=== PATIENT | male | born 1985 | race Caucasian/White ===

== ENCOUNTER 2022-08-25 15:35 | Inpatient (IN) | payer BC, OTHER ==
[~2022-08-25] VITALS: Ht 172.7 cm; Wt 82.0 kg
[~2022-08-25 15:35] MED LIST: NO HOME MEDS
[2022-08-25] MEDS ORDERED: ondansetron/PF 4mg/2ml inj IV ONE (17:45)
[2022-08-25] MEDS ORDERED: ondansetron 4mg rapidly disintigrating tab PO ONE (17:45)
[2022-08-25] MEDS ORDERED: normal saline 1000ml 1,000 ML IV ONE (17:45)
[2022-08-25 18:01] LABS: BASOPHILS % (AUTO) 0.1 % (0-1); EOSINOPHILS % (AUTO) 0.1 % (0-6); HEMOGLOBIN 12.4 g/dl (14.0-17.9); LYMPHOCYTES # (AUTO) 0.8 X10'3 (1.1-4.8); LYMPHOCYTES % (AUTO) 4.2 % (21-51); MEAN CORPUSCULAR HEMOGLOBIN 28.3 PG (27.0-31.0); MEAN CORPUSCULAR HGB CONC 33.5 g/dL (33.0-36.5); MEAN CORPUSCULAR VOLUME 84.6 FL (78-98); MEAN PLATELET VOLUME 6.9 FL (7.4-10.4); MONOCYTES % (AUTO) 5.6 % (2-12); NEUTROPHILS # (AUTO) 16.4 X10'3 (1.8-7.7); PLATELET COUNT 320 X10'3 (140-440); RED BLOOD COUNT 4.37 X10'6 (4.70-6.10); RED CELL DISTRIBUTION WIDTH 13.7 % (11.5-14.5); WHITE BLOOD COUNT 18.2 X10'3 (4.5-11.0)
[2022-08-25] MEDS ORDERED: CefTRIAXone/D5W-Rocephin 1gm 50 ML IV ONE (18:15)
[2022-08-25] MEDS ORDERED: azithromycin/NS 500mg/250ml 250 ML IV ONE (18:15)
[2022-08-25 18:18] LABS: ALANINE AMINOTRANSFERASE 32 U/L (12-78); ALBUMIN 2.8 G/DL (3.4-5.0); ALBUMIN/GLOBULIN RATIO 0.6 (1.1-1.5); ALKALINE PHOSPHATASE 103 IU/L (46-116); ANION GAP 11 (8-16); ASPARTATE AMINO TRANSFERASE 28 U/L (10-37); BILIRUBIN,TOTAL 0.6 MG/DL (0.1-1.0); BLOOD UREA NITROGEN 41 MG/DL (7-18); BUN/CREATININE RATIO 22.4 (10.0-20.0); CALCIUM 8.8 MG/DL (8.5-10.1); CHLORIDE 94 MMOL/L (99-107); CREATININE 1.83 MG/DL (0.60-1.10); GLUCOSE 91 MG/DL (70-104); LIPASE < 50 U/L (73-393); MAGNESIUM 1.9 MG/DL (1.5-2.4); POTASSIUM 3.7 MMOL/L (3.5-5.1); SODIUM 130 MMOL/L (135-145); TOTAL PROTEIN 7.5 G/DL (6.4-8.2); eGFR 42 ML/MIN
[2022-08-25] MEDS ORDERED: normal saline 1000ML IV soln IVB ONE ×2 (19:20→20:45)
[2022-08-25 19:32] LABS: D-DIMER 1.48 MG/L FEU (0-0.50)
[2022-08-25] MEDS ORDERED: iohexol 350MG/ML 100ml bottle IV ONE (19:56)
[2022-08-25] MEDS ORDERED: acetaminophen 325mg tablet PO ONE (20:45)
[2022-08-25] MEDS ORDERED: temazepam 15mg capsule PO PRN (21:00)
[2022-08-25] MEDS ORDERED: potassium Cl 40MEQ/1/2NS 520ml 520 ML IV PRN ×2 (21:20→22:45)
[2022-08-25] MEDS ORDERED: ipratropium/albuterol 3ml nebule NEB PRN ×2 (21:20)
[2022-08-25] MEDS ORDERED: potassium Cl 20 mEq SR tablet PO PRN ×4 (21:20→22:45)
[2022-08-25] MEDS ORDERED: magnesium 4gm in 100ml NS 100 ML IV PRN ×2 (21:20→22:45)
[2022-08-25] MEDS ORDERED: normal saline 1000ml 1,000 ML IV SCH (21:20)
[2022-08-25] MEDS ORDERED: magnesium Cl slow-release 64mg tablet PO PRN ×2 (21:20→22:45)
[2022-08-25] MEDS ORDERED: ondansetron/PF 4mg/2ml inj IV PRN (21:20)
[2022-08-25 21:37] LABS: POTASSIUM 3.9 MMOL/L (3.5-5.1)
[2022-08-25] MEDS ORDERED: acetaminophen 325mg tablet PO PRN (22:45)
[2022-08-25] MEDS ORDERED: magnesium hydroxide 30ml (MOM) UD suspension PO PRN (22:45)
[2022-08-25] MEDS ORDERED: mag hydrox/Alum hydrox/simeth 30ml oral suspension PO PRN (22:45)
[2022-08-25] MEDS ORDERED: levoFLOXACIN-Levaquin 750MG/D5 150 ML IV STA (22:45)
[2022-08-25] MEDS: normal saline 1000ml 1,000 ML IV SCH (23:10)
[2022-08-26] VITALS (17 sets, daily range): BP systolic 89–122; BP diastolic 50–76
[2022-08-26] MEDS: heparin, porcine 5000 units/ml vial SQ SCH ×3 (01:04→16:02)
[2022-08-26] MEDS: NORepinephrine 8mg/ 250ml NS 250 ML IV SCH ×2 (01:19→15:09)
[2022-08-26 03:38] LABS: BASOPHILS % (AUTO) 0.1 % (0-1); EOSINOPHILS % (AUTO) 0.1 % (0-6); HEMATOCRIT 31.4 % (42.0-52.0); HEMOGLOBIN 10.6 g/dl (14.0-17.9); LYMPHOCYTES % (AUTO) 4.5 % (21-51); MEAN CORPUSCULAR HEMOGLOBIN 28.3 PG (27.0-31.0); MEAN CORPUSCULAR HGB CONC 33.7 g/dL (33.0-36.5); MEAN CORPUSCULAR VOLUME 83.9 FL (78-98); MEAN PLATELET VOLUME 7.7 FL (7.4-10.4); MONOCYTES # (AUTO) 0.6 X10'3 (0-0.9); MONOCYTES % (AUTO) 2.6 % (2-12); NEUTROPHILS # (AUTO) 21.3 X10'3 (1.8-7.7); NEUTROPHILS % (AUTO) 92.7 % (42-75); PLATELET COUNT 317 X10'3 (140-440); RED BLOOD COUNT 3.74 X10'6 (4.70-6.10); RED CELL DISTRIBUTION WIDTH 13.6 % (11.5-14.5)
[2022-08-26 03:55] LABS: ALBUMIN 2.1 G/DL (3.4-5.0); ANION GAP 10 (8-16); BLOOD UREA NITROGEN 32 MG/DL (7-18); BUN/CREATININE RATIO 27.1 (10.0-20.0); CALCIUM 7.6 MG/DL (8.5-10.1); CHLORIDE 102 MMOL/L (99-107); CREATININE 1.18 MG/DL (0.60-1.10); GLUCOSE 119 MG/DL (70-104); MAGNESIUM 1.7 MG/DL (1.5-2.4); POTASSIUM 4.2 MMOL/L (3.5-5.1); SODIUM 136 MMOL/L (135-145); TOTAL CARBON DIOXIDE 23.9 MMOL/L (24-32); eGFR 69 ML/MIN
[2022-08-26 07:07] LABS: URINE AMPHETAMINE SCREEN POSITIVE (Neg); URINE BARBITUATE SCREEN NEGATIVE (Neg); URINE BENZODIAZEPINES SCREEN NEGATIVE (Neg); URINE CANNABINOID SCREEN NEGATIVE (Neg); URINE COCAINE SCREEN NEGATIVE (Neg); URINE METHADONE SCREEN NEGATIVE (Neg); URINE OPIATE SCREEN NEGATIVE (Neg); URINE PHENCYCLIDINE SCREEN NEGATIVE (Neg)
[2022-08-26] MEDS: azithromycin/NS 500mg/250ml 250 ML IV SCH (07:49)
[2022-08-26] MEDS: acetaminophen 325mg tablet PO PRN (07:50)
[2022-08-26] MEDS: K and/or MAG REPLACEMENT MC SCH ×2 (08:00→20:00)
[2022-08-26] MEDS ORDERED: K and/or MAG REPLACEMENT MC SCH (08:00)
[2022-08-26] MEDS ORDERED: docusate sod 100mg capsule PO SCH (08:00)
[2022-08-26] MEDS ORDERED: heparin, porcine 5000 units/ml vial SQ SCH (08:00)
[2022-08-26] MEDS ORDERED: CefTRIAXone/D5W-Rocephin 1gm 50 ML IV SCH ×2 (08:00)
[2022-08-26] MEDS: normal saline 1000ml 1,000 ML IV SCH ×3 (08:45→23:00)
[2022-08-26 09:08] LABS: CLARITY,URINE CLEAR (Clear); COLOR,URINE YELLOW (Yellow); GLUCOSE, URINE NEGATIVE (Neg); KETONES,URINE NEGATIVE (Neg); LEUKOCYTE ESTERASE ,URINE NEGATIVE (Neg); NITRITES, URINE NEGATIVE (Neg); OCCULT BLOOD,URINE TRACE-INTACT (Neg); PH,URINE 5.5 (4.8-8.0); PROTEIN,URINE NEGATIVE (Neg)
[2022-08-26 09:13] LABS: UA COLLECTION TYPE NON-SPECIFIED
[2022-08-26 09:15] LABS: BACTERIA,URINE FEW /HPF (Neg); MUCUS STRANDS NONE SEEN /LPF (Neg); RBC,URINE NONE SEEN /HPF (0-2); SQUAMOUS EPITHELIAL CELL,UR FEW /LPF (FEW); WBC,URINE 0-4 /HPF (0-4)
[2022-08-26] MEDS ORDERED: traMADol 50MG tablet PO PRN (10:25)
[2022-08-26] MEDS: nicotine 21mg patch - 24 hr TD SCH (11:43)
[2022-08-26] MEDS: traMADol 50MG tablet PO PRN (14:21)
[2022-08-26] MEDS: piperacillin/tazo 3.375gm/50ml 50 ML IV SCH (16:35)
[2022-08-26] MEDS ORDERED: VANCOmycin 2,000MG in NS 500ml IV soln IV ONE (17:00)
[2022-08-26] MEDS ORDERED: vancomycin/NS 1 GM ADD-VANTAGE 250 ML IV SCH (17:00)
[2022-08-26 18:12] LABS: BASOPHILS % (AUTO) 0.1 % (0-1); EOSINOPHILS # (AUTO) 0.1 X10'3 (0-0.9); EOSINOPHILS % (AUTO) 0.7 % (0-6); HEMATOCRIT 30.3 % (42.0-52.0); LYMPHOCYTES # (AUTO) 1.5 X10'3 (1.1-4.8); LYMPHOCYTES % (AUTO) 7.1 % (21-51); MEAN CORPUSCULAR HEMOGLOBIN 27.7 PG (27.0-31.0); MEAN CORPUSCULAR HGB CONC 33.2 g/dL (33.0-36.5); MEAN CORPUSCULAR VOLUME 83.5 FL (78-98); MEAN PLATELET VOLUME 7.2 FL (7.4-10.4); MONOCYTES # (AUTO) 1.3 X10'3 (0-0.9); MONOCYTES % (AUTO) 5.9 % (2-12); NEUTROPHILS # (AUTO) 18.3 X10'3 (1.8-7.7); NEUTROPHILS % (AUTO) 86.2 % (42-75); PLATELET COUNT 323 X10'3 (140-440); RED BLOOD COUNT 3.63 X10'6 (4.70-6.10); RED CELL DISTRIBUTION WIDTH 13.7 % (11.5-14.5); WHITE BLOOD COUNT 21.2 X10'3 (4.5-11.0)
[2022-08-26] MEDS: albuterol 2.5 MG/3 ML nebule NEB SCH (20:32)
[2022-08-26] MEDS ORDERED: levoFLOXACIN-Levaquin 750MG/D5 150 ML IV SCH (23:00)
[2022-08-27] MEDS: piperacillin/tazo 3.375gm/50ml 50 ML IV SCH ×3 (00:47→15:51)
[2022-08-27] MEDS: heparin, porcine 5000 units/ml vial SQ SCH ×4 (01:01→23:42)
[2022-08-27] MEDS: albuterol 2.5 MG/3 ML nebule NEB SCH ×4 (03:12→20:19)
[2022-08-27] MEDS: normal saline 1000ml 1,000 ML IV SCH ×2 (04:45→15:50)
[2022-08-27] MEDS ORDERED: vancomycin/NS 1 GM ADD-VANTAGE 250 ML IV SCH (05:00)
[2022-08-27 06:04] LABS: BASOPHILS % (AUTO) 0.2 % (0-1); EOSINOPHILS # (AUTO) 0.3 X10'3 (0-0.9); EOSINOPHILS % (AUTO) 1.5 % (0-6); HEMATOCRIT 28.1 % (42.0-52.0); HEMOGLOBIN 9.4 g/dl (14.0-17.9); LYMPHOCYTES % (AUTO) 10.1 % (21-51); MEAN CORPUSCULAR HEMOGLOBIN 28.2 PG (27.0-31.0); MEAN CORPUSCULAR HGB CONC 33.5 g/dL (33.0-36.5); MEAN CORPUSCULAR VOLUME 84.1 FL (78-98); MONOCYTES # (AUTO) 1.2 X10'3 (0-0.9); NEUTROPHILS # (AUTO) 16.5 X10'3 (1.8-7.7); NEUTROPHILS % (AUTO) 82.2 % (42-75); PLATELET COUNT 325 X10'3 (140-440); RED BLOOD COUNT 3.34 X10'6 (4.70-6.10); RED CELL DISTRIBUTION WIDTH 14.2 % (11.5-14.5); WHITE BLOOD COUNT 20.1 X10'3 (4.5-11.0)
[2022-08-27 06:17] LABS: ALBUMIN 1.7 G/DL (3.4-5.0); ANION GAP 5 (8-16); BLOOD UREA NITROGEN 13 MG/DL (7-18); BUN/CREATININE RATIO 15.9 (10.0-20.0); CALCIUM 7.9 MG/DL (8.5-10.1); CHLORIDE 106 MMOL/L (99-107); CREATININE 0.82 MG/DL (0.60-1.10); GLUCOSE 106 MG/DL (70-104); MAGNESIUM 2.2 MG/DL (1.5-2.4); POTASSIUM 3.5 MMOL/L (3.5-5.1); SODIUM 140 MMOL/L (135-145); TOTAL CARBON DIOXIDE 29.1 MMOL/L (24-32); eGFR > 90 ML/MIN
[2022-08-27 07:00] VITALS: BP 95/58
[2022-08-27] MEDS: nicotine 21mg patch - 24 hr TD SCH (07:33)
[2022-08-27] MEDS: azithromycin/NS 500mg/250ml 250 ML IV SCH (07:33)
[2022-08-27] MEDS: K and/or MAG REPLACEMENT MC SCH ×2 (08:00→20:00)
[2022-08-27] MEDS: vancomycin/NS 1 GM ADD-VANTAGE 250 ML IV SCH ×3 (08:22→23:24)
[2022-08-27 11:00] VITALS: BP 115/55
[2022-08-27 15:00] VITALS: BP 102/55
[2022-08-27 18:00] VITALS: BP 121/77
[2022-08-27] MEDS: traMADol 50MG tablet PO PRN (20:53)
[2022-08-27 22:00] VITALS: BP 115/68
[2022-08-27] MEDS: acetaminophen 325mg tablet PO PRN (23:45)
[2022-08-28] MEDS: normal saline 1000ml 1,000 ML IV SCH (00:45)
[2022-08-28] MEDS: piperacillin/tazo 3.375gm/50ml 50 ML IV SCH ×2 (00:47→08:00)
[2022-08-28 02:00] VITALS: BP 118/61
[2022-08-28] MEDS: albuterol 2.5 MG/3 ML nebule NEB SCH ×2 (02:47→08:46)
[2022-08-28] MEDS ORDERED: VANCOMYCIN LEVEL IV ONE (06:30)
[2022-08-28 07:35] LABS: BASOPHILS # (AUTO) 0.1 X10'3 (0-0.2); BASOPHILS % (AUTO) 0.4 % (0-1); EOSINOPHILS # (AUTO) 0.4 X10'3 (0-0.9); EOSINOPHILS % (AUTO) 3.3 % (0-6); HEMOGLOBIN 9.5 g/dl (14.0-17.9); LYMPHOCYTES # (AUTO) 1.9 X10'3 (1.1-4.8); LYMPHOCYTES % (AUTO) 15.3 % (21-51); MEAN CORPUSCULAR HEMOGLOBIN 28.6 PG (27.0-31.0); MEAN CORPUSCULAR HGB CONC 33.9 g/dL (33.0-36.5); MEAN CORPUSCULAR VOLUME 84.5 FL (78-98); MEAN PLATELET VOLUME 6.8 FL (7.4-10.4); MONOCYTES # (AUTO) 1.4 X10'3 (0-0.9); MONOCYTES % (AUTO) 10.8 % (2-12); NEUTROPHILS # (AUTO) 8.9 X10'3 (1.8-7.7); NEUTROPHILS % (AUTO) 70.2 % (42-75); PLATELET COUNT 346 X10'3 (140-440); RED BLOOD COUNT 3.31 X10'6 (4.70-6.10); RED CELL DISTRIBUTION WIDTH 14.5 % (11.5-14.5); WHITE BLOOD COUNT 12.7 X10'3 (4.5-11.0)
[2022-08-28 08:00] LABS: ALBUMIN 1.8 G/DL (3.4-5.0); ANION GAP 5 (8-16); BLOOD UREA NITROGEN 11 MG/DL (7-18); BUN/CREATININE RATIO 14.7 (10.0-20.0); CALCIUM 8.2 MG/DL (8.5-10.1); CHLORIDE 107 MMOL/L (99-107); CREATININE 0.75 MG/DL (0.60-1.10); GLUCOSE 82 MG/DL (70-104); POTASSIUM 3.4 MMOL/L (3.5-5.1); SODIUM 141 MMOL/L (135-145); TOTAL CARBON DIOXIDE 29.1 MMOL/L (24-32); eGFR > 90 ML/MIN
[2022-08-28] MEDS: azithromycin/NS 500mg/250ml 250 ML IV SCH (08:00)
[2022-08-28] MEDS: heparin, porcine 5000 units/ml vial SQ SCH (08:00)
[2022-08-28] MEDS: nicotine 21mg patch - 24 hr TD SCH (08:00)
[2022-08-28] MEDS: K and/or MAG REPLACEMENT MC SCH (08:00)
[2022-08-28] MEDS: acetaminophen 325mg tablet PO PRN (09:39)
[2022-08-28] MEDS ORDERED: LEVO-65 PO (09:56)
[2022-08-28] MEDS ORDERED: VANCOmycin 1250MG/NS 250ml Bag 250 ML IV SCH (15:00)
[2022-08-29] MEDS ORDERED: VANCOMYCIN LEVEL IV ONE (14:30)
== END 2022-08-28 11:54 | disposition home or self-care (01) | DRG 871 ==
LOC: ER 15:36 → ED HOLD 21:30 → EDBEDREQ 23:51 → EDBEDREQSVC 23:51 → CICU 2S 08-26 00:50 → PCU 3S 08-26 16:54
PROVIDERS: ADMIT Internal Medicine; ATTEND Internal Medicine
PROC: 5A0935A Assistance with Respiratory Ventilation, Less than 24 Consecutive Hours, High Flow/Velocity Cannula (ICD-10-PCS; principal; 2022-08-26)
PROC: 5A0935A Assistance with Respiratory Ventilation, Less than 24 Consecutive Hours, High Flow/Velocity Cannula (ICD-10-PCS; 2022-08-27)
DX: A41.9 Sepsis, unspecified organism (principal); J18.9 Pneumonia, unspecified organism; J96.01 Acute respiratory failure with hypoxia; R65.21 Severe sepsis with septic shock; E87.1 Hypo-osmolality and hyponatremia; N17.9 Acute kidney failure, unspecified; Z20.822 Contact with and (suspected) exposure to COVID-19; F15.90 Other stimulant use, unspecified, uncomplicated; F17.200 Nicotine dependence, unspecified, uncomplicated; Z63.4 Disappearance and death of family member; Z80.0 Family history of malignant neoplasm of digestive organs; Z80.1 Family history of malignant neoplasm of trachea, bronchus and lung; Z80.3 Family history of malignant neoplasm of breast; Z80.8 Family history of malignant neoplasm of other organs or systems
CPT/HCPCS: 36415; 36556; 71045; 71275; 80048; 80053; 80202; 80305; 81001; 83605; 83690; 83735; 84132; 84145; 84484; 85025; 85379; 87040; 87081; 87502; 87503; 87811; 94640; 94664; 94668; 94760; 96361; 96365; 96367; 96375; 99285; A4615; A6213; C1751; G0378; J0456; J0696; J1644; J1956; J2405; J2543; J3370; J3490; J7030; J7040; Q9967

== ENCOUNTER 2023-10-27 09:28 | Emergency (ER) | payer BC, MEDICAID ==
[~2023-10-27] VITALS: Ht 172.7 cm; Wt 77.3 kg
[2023-10-27 09:41] VITALS: TEMP 98.5
[2023-10-27 12:09] VITALS: BP 120/83; PULSE 88; RESP 16; O2SAT 100
[2023-10-27] MEDS ORDERED: MUPI22OI30 NAS (12:40)
[2023-10-27] MEDS ORDERED: CEPH-585 PO (12:40)
[2023-10-27] MEDS ORDERED: SULF1TAB49 PO (12:40)
== END 2023-10-27 12:56 | disposition home or self-care (01) ==
LOC: ER 09:29
DX: B99.8 Other infectious disease (principal); B95.8 Unspecified staphylococcus as the cause of diseases classified elsewhere
CPT/HCPCS: 99283

== ENCOUNTER 2024-12-31 11:36 | Emergency (ER) | payer MEDICAID, OTHER ==
[~2024-12-31] VITALS: Ht 172.7 cm; Wt 82.4 kg
[2024-12-31 11:46] VITALS: BP 110/72; PULSE 76; TEMP 97.6; O2SAT 99
[2024-12-31] MEDS: LIDOcaine 1% 30ml preserv. free vial IJ ONE (11:50)
--- NOTE | 2024-12-31 11:52 | Physician Documentation ---
HPI ~ General Chief Complaint: Amputation Stated Complaint: FINGER LAC Time Seen by MD: 12:37 Primary Medical Doctor: none History of Present Illness Initial Comments 39-year-old male who presents to the emergency department reporting that he had an injury at work to the left index finger. Reports that he slammed the finger in a door. On presentation, bleeding is controlled, he is found to have an amputation of the distal aspect of the left index finger. Chief Complaint: Fingertip amputation Caveat: None Independent Historians: None History of Present Illness: Patient is a 39-year-old man who works at [employer] he got his finger stuck in the bathroom door. This resulted in loss of tissue of the left index finger. Patient's pain is severe, 9/10. Pain is sharp and burning and throbbing. No other injuries. Review of systems: All systems were reviewed and are negative except for what is indicated in the history of present illness. Past Medical History: None Past Surgical History: None Social History: Tobacco use, denies alcohol or drug use Medications: Reviewed as documented Nursing Notes Allergies: Reviewed as documented in Nursing Notes Tetanus Within 5 Years: No Medication Reconciliation Allergies: Coded Allergies: No Known Allergies (Unverified , 12/31/24) Scheduled Cephalexin*Monohydrate* (Keflex*), 1 CAP PO Q6H Scheduled PRN Hydrocodone Bit/Acetaminophen (Hydrocodone-Apap 10-325 Tablet), 1 TAB PO TID PRN PRN for pain Past Medical History Past Medical History: No Pertinent History Past Surgical History: noncontributory Alcohol Use: None Drug Use: none Review of Systems All Other Systems at this time: Reviewed and Negative ROS As stated above in the HPI, otherwise all systems are reviewed and negative. Physical Exam Vital Signs: RN Vital Signs have been reviewed: Yes, Temperature: 97.6, Source: Oral, Heart Rate: 76, Respiratory Rate: 22, BP: 110/72, Pulse Oximetry: 99, Weight: 82.400 Oxygen Flow Rate: 0 Pulse Oximetry Reflects: adequate oxygenation Physical Exam General Appearance: MODERATE DISTRESS HEENT: Normal OP, moist oral mucosa, PERRL, EOMI Neck: supple, normal ROM, trachea midline Pulmonary: No respiratory distress, CTA, BS equal Cardiac: RRR, no murmur, rub or gallop, Extremities: LEFT INDEX FINGERTIP IS ABSENT BELOW THE FINGERNAIL. NO OBVIOUS EXPOSED BONE/DISTAL PHALANX. BLEEDING IS CONTROLLED. FINGERNAILS INTACT. NO OTHER INJURIES OR TRAUMA TO THE LEFT HAND OR OTHER EXTREMITIES. Skin: intact, dry, warm, no rashes, SEE EXTREMITY EXAM ABOVE Neuro: AAOx3, speech is clear, no focal motor weakness Psych: normal affect, good eye contact, no apparent hallucination, normal speech Procedures Nerve Block Nerve Block Site: left index finger Anesthetic Used: lidocaine 1% Volume Anesthetic (ccs): 1.5 Tolerated Procedure Well?: yes, no complications Procedure Note Finger tip wound left index finger irrigated with the proximally 80-100 cc of normal saline. Dressed with a Xeroform gauze and Surgicel. Progress Results/Orders Results/Orders Orders - PEYMAN REHMAN MD Ed Iv Pain Medications (12/31/24 12:38) Fill Out Med Reconciliation (12/31/24 13:19) Completed Orders - PEYMAN REHMAN MD Lidocaine 1% W/Epi 1:100,000 (Xylocaine (12/31/24 12:40) Ondansetron Inj. (Zofran 4mg/2ml Vial) (12/31/24 12:40) Morphine 4mg/Ml Inj. (Morphine Inj.) (12/31/24 12:40) Ketorolac Trometh 15mg/Ml Vial (Toradol (12/31/24 12:40) Cefazolin/D5w- 1gm Premix (Ancef 1 Gm-D5 (12/31/24 13:19) Medications Received in ER Medications (Trade) Dose Ordered Sig/Elvira Route PRN Reason Start Time Stop Time Status Last Admin Dose Admin (Boostrix vaccine syringe) 0.5 ml ONCE ONCE IMVAC 12/31/24 11:50 12/31/24 11:51 DC 12/31/24 14:04 0.5 ML (Dilaudid inj.) 0.5 mg ONCE ONCE IM 12/31/24 11:55 12/31/24 11:56 DC 12/31/24 12:54 0.5 MG (Zofran 4mg/2ml vial) 4 mg ONCE ONCE IV 12/31/24 12:40 12/31/24 12:41 DC 12/31/24 12:53 4 MG (Toradol injection) 15 mg ONCE ONCE IV 12/31/24 12:40 12/31/24 12:41 DC 12/31/24 12:54 15 MG Cefazolin Sodium/ Dextrose 50 ml @ 100 mls/hr NOW STAT IV 12/31/24 13:19 12/31/24 13:48 DC 12/31/24 14:04 100 MLS/HR Vital Signs 12/31/24 12/31/24 12/31/24 12/31/24 11:46 12:22 12:54 12:54 Temp 97.6 Pulse 76 Resp 22 16 16 16 B/P (MAP) 110/72 Pulse Ox 99 O2 Flow Rate 0 Medical Decision Making Findings Differential diagnosis includes but is not limited to: Finger amputation, partial amputation, fracture Left hand, x-rays, three views, indication: Trauma Impression: Loss of soft tissue, no gross fracture but may have some bone involvement. Emergency department course/medical decision-making: Patient is a 39-year-old man who has an amputation of the left index finger tip. There may be some bone involvement on plain film x-rays. Patient is given 1 g of IV Ancef. Patient is given a tetanus booster. Patient is given morphine 4 mg IV and Zofran 4 mg IV. Patient also given digital block to the left index finger and the wound is irrigated and dressed with Xeroform. Bleeding is controlled. Patient is also given Olga prior to discharge. Patient is given a prescription for Keflex and Olga. Patient will follow up with Dr. Jacobson tomorrow. Patient is stable for discharge. Consultation/communications: 11:00 p.m.: Referral to Dr. Jacobson for outpatient follow up made Departure Time of Disposition: 14:14 Disposition: HOME / SELF CARE / HOMELESS Impression: Primary Impression: Fingertip amputation Qualified Codes: S68.119A - Complete traumatic metacarpophalangeal amputation of unspecified finger, initial encounter Condition: Stable Discharge Instructions: Traumatic Finger Amputation Additional Instructions: FOLLOW UP WITH DR. JACOBSON TOMORROW. TAKE THE ANTIBIOTICS DIRECTED. ELEVATE THE HAND AND APPLY COLD COMPRESSES FOR PAIN. YOU MAY ALSO TAKE ADVIL/MOTRIN FOR PAIN. NO DRIVING WHEN TAKING THE PAIN MEDICATIONS PRESCRIBED IT MAY CAUSE DROWSINESS. Departure Forms: Excuse form Work or School Excuse beginning now through the following date: Jan 07, 2025 Referrals: SENDY JACOBSON Jr., MD Prescriptions Cephalexin*Monohydrate* (Keflex*) 500 Mg Capsule 1 CAP PO Q6H for 10 Days, #40 CAP Prov: PEYMAN REHMAN MD 12/31/24 Hydrocodone Bit/Acetaminophen (Hydrocodone-Apap 10-325 Tablet) 10mg/325mg Tablet 1 TAB PO TID PRN PRN for pain, #20 TAB Prov: PEYMAN REHMAN MD 12/31/24 Education Educated: Patient, Family Educated regarding: diagnosis, treatment, need for follow up Signature Scribe Signature: No scribe Attestation: No scribe GARRETT CASTANO NP Dec 31, 2024 11:52 PEYMAN REHMAN MD Dec 31, 2024 14:20
[2024-12-31] MEDS: LIDOcaine 1% W/epiNEPHrine 1:100,000 20ml vial SQ ONE (12:40)
[2024-12-31] MEDS ORDERED: morphine 4 MG/ML inj SYRINge IV PRN (12:40)
[2024-12-31] MEDS: ondansetron/PF 4mg/2ml inj IV ONE (12:53)
[2024-12-31 12:54] VITALS: RESP 16
[2024-12-31] MEDS: HYDROmorphone inj. 0.5 MG/0.5 ML DISP.SYRIN IM ONE (12:54)
[2024-12-31] MEDS: ketorolac trometh 15mg/ml vial 15 MG/ML ML IV ONE (12:54)
--- NOTE | 2024-12-31 13:51 | RADIOLOGY REPORT ---
CLINICAL INDICATION: trauma TECHNIQUE: DI FINGER(S) Comparison: None FINDINGS/IMPRESSION: : Amputation of the distal 2nd finger tip with amputation of the distal finger tip soft tissues and the distal most tuft of the 2nd distal phalanx. Mild fracturing of the remaining distal tuft of the 2nd distal phalanx. No radiopaque foreign body.
[2024-12-31] MEDS: ceFAZolin/D5W- 1GM premix 50 ML IV STA (14:04)
[2024-12-31] MEDS: TETanus/Pertussis (Acell)/Diphther VAC/PF (Tdap-Adult) 0.5ml syringe IMVAC ONE (14:04)
[2024-12-31] MEDS ORDERED: CEPH-585 PO (14:19)
[2024-12-31] MEDS ORDERED: HYDR-3973 PO (14:19)
== END 2024-12-31 14:27 | disposition home or self-care (01) ==
LOC: ER 11:37
DX: S68.611A Complete traumatic transphalangeal amputation of left index finger, initial encounter (principal); Z23 Encounter for immunization; W23.2XXA Caught, crushed, jammed or pinched between a moving and stationary object, initial encounter; Y93.89 Activity, other specified; Y92.89 Other specified places as the place of occurrence of the external cause; Y99.0 Civilian activity done for income or pay
CPT/HCPCS: 64450; 73140; 90471; 90715; 96372; 96374; 96375; 99284; A6222; A6223; J0690; J1171; J1885; J2405; J7030; A6449

== ENCOUNTER 2025-03-01 08:26 | Emergency (ER) | payer MEDICAID, OTHER ==
[~2025-03-01] VITALS: Ht 172.7 cm; Wt 77.3 kg
[2025-03-01 08:29] VITALS: BP 134/83; PULSE 85; TEMP 97; O2SAT 100
--- NOTE | 2025-03-01 09:05 | Physician Documentation ---
History of Present Illness ~ Chief Complaint: Abscess Stated Complaint: ABSCESS Time Seen by MD: 08:44 Primary Medical Doctor: none HPI 39 years old male with history of multiple seen infection/abscess in the past presented to the ED for swelling and pain in the right side of her chin. Patient reported his symptoms started from yesterday when he started manipulate the ingrowing hair around the area the was an ingrowing hair and squeezed it to remove hair from the area. Swelling started from yesterday and extended to his nasolabial fold and Tetanus Within 5 Years: No Medication Reconciliation Allergies: Coded Allergies: No Known Allergies (Unverified , 03/01/25) Scheduled Cephalexin Monohydrate (Cephalexin), 1 CAP PO Q8H Sulfamethoxazole/Trimethoprim (Bactrim Ds Tablet), 1 EACH PO BID Past Medical History Past Medical History: No Pertinent History Past Surgical History: noncontributory Alcohol Use: None Drug Use: none, marijuana Review of Systems ROS Constitutional: No fever, dizziness, weakness. no change in appetite/weight HEENT: No blurring of the vision, No sore throat, epistaxis, tinnitus Cardiovascular: no chest pain/discomfort, palpitations, no syncope. No pedal edema Respiratory: No sob, cough,, hemoptysis Gastrointestinal: no abdominal pain, no nausea, vomiting. no diarrhea, no constipation, melena. Genitourinary: No frquency, urgency, incontinence, nocturia. No dysuria, he maturia Musculoskeletal: No arthralgia, myalgia Endocrine: No polydipsia, polyuria. No heat or cold intolerance Neurologic: No headache, vertigo. No weakness, no numbness or tingling of extremities Psychiatric: No hallucinations/delusions, no anhedonia, no suicidal ideation\ Hematologic: No bleeding or bruises Physical Exam Vital Signs: Temperature: 97.0, Source: Temporal, Heart Rate: 85, Respiratory Rate: 16, BP: 134/83, Pulse Oximetry: 100, Weight: 77.270 Physical Exam General: Awake and Alert, no acute distress. HEENT: Conjunctiva pink, Sclera clear, Mucus Membranes moist. Right chin: Swelling around right side of the chin and nasolabial fold, no ulcer in the mouth, 1 cm right side submandibular lymph node Neck: Supple without masses and tenderness. Resp: Lungs clear to auscultation bilaterally. Heart: Regular Rate and rhythm, normal S1 and S2 Abdomen: Soft and non tender no organomegaly Extremities: No cyanosis,clubbing or edema. Skin: Warm and Dry. Neurological: Speech is clear, alert, and oriented x 4, no gross neurological deficits Progress Results/Orders Results/Orders Vital Signs 03/01/25 08:29 Temp 97.0 Pulse 85 Resp 16 B/P (MAP) 134/83 Pulse Ox 100 Laboratory Tests Test 03/01/25 09:05 White Blood Count 10.3 Red Blood Count 4.96 Hemoglobin 14.6 Hematocrit 42.9 Mean Corpuscular Volume 86.5 Mean Corpuscular Hemoglobin 29.5 Mean Corpuscular Hemoglobin Concent 34.1 Red Cell Distribution Width 14.0 Platelet Count 256 Mean Platelet Volume 7.0 L Neutrophils (%) (Auto) 77.6 H Lymphocytes (%) (Auto) 12.4 L Monocytes (%) (Auto) 7.9 Eosinophils (%) (Auto) 1.6 Basophils (%) (Auto) 0.5 Neutrophils # (Auto) 8.0 H Lymphocytes # (Auto) 1.3 Monocytes # (Auto) 0.8 Eosinophils # (Auto) 0.2 Basophils # (Auto) 0.0 CBC Comment Sodium Level 142 Potassium Level 4.1 Chloride Level 105 Carbon Dioxide Level 30.3 Anion Gap 7 L Blood Urea Nitrogen 11 Creatinine 0.97 Estimated GFR/1.73 m2 85 BUN/Creatinine Ratio 11.3 Glucose Level 121 H Calcium Level 9.2 Albumin 3.9 Chemistry Comments Medical Decision Making Additional Comment 39 years old male with history of multiple skin infection, presented with swelling and pain in the right side of chin after manipulating the ingrowing hair, there is no any side of fluctuation in the abscess Departure Disposition: 01 HOME / SELF CARE / HOMELESS Impression: Primary Impression: Cellulitis Condition: Improved Discharge Instructions: Cellulitis, Adult, [id number] Additional Instructions: Please complete a course of antibiotic, keep the area clean and dry, we expected the swelling and pain we will improved waiting next 48 hours, return to ED if your symptoms getting worse Referrals: NO PRIMARY CARE PROVIDER (PCP) Prescriptions Sulfamethoxazole/Trimethoprim (Bactrim Ds Tablet) 800 Mg-160 Mg Tablet 1 EACH PO BID for 10 Days, #20 TAB Prov: AILEEN YA RES 03/01/25 Cephalexin Monohydrate (Cephalexin) 500 Mg Capsule 1 CAP PO Q8H for 10 Days, #30 CAP Prov: AILEEN YA, RES 03/01/25 Education Educated: Patient Educated regarding: diagnosis, treatment Signature Scribangelina Signature: Aileen Ya MD Internal Medicine Resident Attestation: The resident attestation: I examined the patient and discussed the plan with attending physician Dr Almazan. I was present and personally evaluated the patient with the Resident physician and I agree with her plan as stated in the documentation. Thierry Almazan M.D. AILEEN YA, RES Mar 01, 2025 09:05 THIERRY ALMAZAN MD Mar 01, 2025 09:26
[2025-03-01 09:12] LABS: MEAN PLATELET VOLUME 7.0 FL (7.4-10.4); RED CELL DISTRIBUTION WIDTH 14.0 % (11.5-14.5)
[2025-03-01 09:21] LABS: CREATININE 0.97 MG/DL (0.60-1.10); TOTAL CARBON DIOXIDE 30.3 MMOL/L (24-32); eCRCL 97 ML/MIN; eGFR 85 ML/MIN
[2025-03-01] MEDS ORDERED: SULF1TAB49 PO (09:23)
[2025-03-01] MEDS ORDERED: CEPH500C2 PO (09:23)
[2025-03-01 09:51] VITALS: RESP 16
[2025-03-01] MEDS: ketorolac trometh 15mg/ml vial 15 MG/ML ML IM ONE (09:51)
[2025-03-03] MEDS ORDERED: LIDOcaine 1% W/epiNEPHrine 1:100,000 20ml vial SQ ONE (10:30)
== END 2025-03-01 09:58 | disposition home or self-care (01) ==
LOC: ER 08:27
DX: L03.211 Cellulitis of face (principal); F12.90 Cannabis use, unspecified, uncomplicated
CPT/HCPCS: 36415; 80048; 85025; 85651; 96372; 99283; J1885

== ENCOUNTER 2025-03-03 08:58 | Emergency (ER) | payer MEDICAID ==
[~2025-03-03] VITALS: Ht 172.7 cm; Wt 75.7 kg
[~2025-03-03 08:58] MED LIST changes: +CEPH500C2 PO; -NO HOME MEDS; +SULF1TAB49 PO
--- NOTE | 2025-03-03 09:34 | Physician Documentation ---
History of Present Illness ~ General Chief Complaint: Facial Swelling Stated Complaint: RECHECK Time Seen by MD: 09:29 Primary Medical Doctor: none History of Present Illness Initial Comments Patient presents with several days of right facial swelling. He was seen a few days ago in the ED and prescribed Bactrim and Keflex and over the last 24 hours has had increasing swelling. He denies any difficulty swallowing. No fevers. Medication Reconciliation Allergies: Coded Allergies: No Known Allergies (Unverified , 03/03/25) Scheduled Cephalexin Monohydrate (Cephalexin), 1 CAP PO Q8H Doxycycline Hyclate (Doxycycline Hyclate), 1 CAP PO Q12H Sulfamethoxazole/Trimethoprim (Bactrim Ds Tablet), 1 EACH PO BID Past Medical History Past Medical History: No Pertinent History Past Surgical History: noncontributory Alcohol Use: None Drug Use: none, marijuana Review of Systems All Other Systems at this time: Reviewed and Negative Physical Exam Physical Exam Vital Signs: Temperature: 98.2, Source: Oral, Heart Rate: 94, Respiratory Rate: 15, BP: 119/79, Pulse Oximetry: 100, Weight: 75.700 Oxygen Flow Rate: 0 Physical Exam Nontoxic resting comfortably in bed Face: 3 cm area of induration right lower cheek/jaw Oropharynx clear no trismus no peritonsillar abscess no dental abscess no gingivitis controlling secretions Neck range of motion intact Awake alert oriented Breathing comfortably Procedures I & D Procedure : Anesthesia: Lidocaine w/ Epi Blade Size: 11 Tolerated Procedure Well?: yes, no complications Procedure Note Stab incision. Expressed 5 mL purulent drainage. No packing placed due to low volume Progress Results/Orders Results/Orders Completed Orders - IZABELA SHELTON MD Lidocaine 1% W/Epi 1:100,000 (Xylocaine (03/03/25 12:30) Vital Signs 03/03/25 03/03/25 03/03/25 03/03/25 09:05 09:23 11:38 12:43 Temp 98.2 98.2 Pulse 90 94 86 79 Resp 18 15 18 18 B/P (MAP) 126/83 119/79 (92) 123/76 (92) 120/81 (94) Pulse Ox 100 100 100 98 O2 Flow Rate 0 0 0 03/03/25 13:29 Pulse 75 Resp 18 B/P (MAP) 120/90 Pulse Ox 99 Departure Disposition: HOME / SELF CARE / HOMELESS Impression: Primary Impression: Abscess Additional Instructions: Start soaking with warm water compresses, at least once per hour while awake for the next 2 days. Stop taking the sulfamethoxazole/trimethoprim and continue taking the cephalexin. Start taking the doxycycline as well Referrals: NO PRIMARY CARE PROVIDER (PCP) Prescriptions Doxycycline Hyclate (Doxycycline Hyclate) 100 Mg Capsule 1 CAP PO Q12H for 7 Days, #20 CAP Prov: IZABELA SHELTON MD 03/03/25 Signature Scribe Signature: na Attestation: IZABELA Holland MD Mar 03, 2025 09:34
[2025-03-03] MEDS: LIDOcaine 1% W/epiNEPHrine 1:100,000 20ml vial SQ ONE (12:36)
[2025-03-03 12:43] VITALS: TEMP 98.2
[2025-03-03] MEDS ORDERED: DOXY-1 PO (13:12)
[2025-03-03 13:29] VITALS: BP 120/90; PULSE 75; RESP 18; O2SAT 99
== END 2025-03-03 13:39 | disposition home or self-care (01) ==
LOC: ER 08:59
DX: L02.01 Cutaneous abscess of face (principal)
CPT/HCPCS: 10060; 99285; A6449